=== PATIENT | female | born 1980 | race Caucasian/White ===

== ENCOUNTER 2021-01-27 09:15 | Outpatient (CLI) | payer OTHER, SELFPAY ==
[2021-01-27 09:44] LABS: Basophils Absolute Auto 0.1 K/mm3 (0.0-0.1); Basophils Percent Auto 1.3 % (0.2-1.2); Eosinophils Absolute Auto 0.1 K/mm3 (0-0.3); Eosinophils Percent Auto 1.7 % (0-4.4); Hematocrit 39.2 % (37.0-47.0); Immature Granulocyte Absolute 0.01 K/mm3 (0.00-0.031); Immature Granulocyte Percent A 0.2 % (0-0.5); Lymphocytes Absolute Auto 1.54 K/mm3 (0.9-3.2); Lymphocytes Percent Auto 28.3 % (18.3-44.2); Mean Corpuscular HGB Conc 33.2 g/dl (32-36); Mean Corpuscular Hemoglobin 27.4 pg (26-34); Mean Corpuscular Volume 82.5 fl (80-100); Mean Platelet Volume 10.7 fl (7.4-10.4); Monocytes Absolute Auto 0.4 K/mm3 (0.1-0.6); Monocytes Percent Auto 7.9 % (2.6-8.5); Neutrophils Absolute Auto 3.3 K/mm3 (1.3-6.7); Neutrophils Percent Auto 60.6 % (45.5-73.1); Platelet Count Result 274 k/mm3 (150-375); Red Blood Count 4.75 M/mm3 (4.2-5.4); White Blood Count 5.5 K/mm3 (4.5-10.0)
[2021-01-27 09:58] LABS: Alanine Aminotransferase 26 U/L (4-35); Albumin Level 4.1 g/dL (3.5-5.1); Alkaline Phosphatase 68 U/L (38-126); Amylase 68 U/L (30-110); Anion Gap 6 mmol/L (8-16); Aspartate Amino Transferase 27 U/L (14-36); Bilirubin,Total 0.5 mg/dL (0.2-1.3); Blood Urea Nitrogen 14 mg/dL (7-17); CRP < 0.5 mg/dL (<1.0); Carbon Dioxide 27 mmol/L (22-30); Chloride 103 mmol/L (98-107); Cholesterol 251 mg/dL (0-200); Estimated Glomerular Filt Rate > 60; Glucose 104 mg/dL (65-110); HDL Direct 42 mg/dL; Lipase 34 U/L (23-300); Potassium 4.7 mmol/L (3.4-5.0); Sodium 136 mmol/L (137-145); Triglycerides 149 mg/dL (<150)
[2021-01-27 10:09] LABS: LDL Cholesterol Direct 161 mg/dL
[2021-01-27 12:08] LABS: Erythrocyte Sedimentation Rate 15 mm/hr (0-20)
[2021-01-29 04:02] LABS: Insulin Level Total 7.9 uIU/mL (<=19.6)
[2021-01-29 06:23] LABS: FSH 6.2 mIU/mL (***); LH 5.7 mIU/mL (***); Progesterone <0.2 ng/mL (***)
[2021-02-01 22:47] LABS: Estrogen 327.7 pg/mL
== END 2021-01-27 09:16 | disposition home or self-care (01) ==
PROVIDERS: PCP Family Medicine; Visit Provider Nurse Practitioner Family
DX: R63.5 Abnormal weight gain (principal); R10.12 Left upper quadrant pain; M25.50 Pain in unspecified joint; Z13.220 Encounter for screening for lipoid disorders; F41.8 Other specified anxiety disorders
CPT/HCPCS: 36415; 80053; 80061; 82150; 82672; 83001; 83002; 83525; 83690; 84144; 84443; 85025; 85652; 86038; 86039; 86140

== ENCOUNTER 2021-02-12 07:35 | Outpatient (CLI) | payer OTHER, SELFPAY ==
--- NOTE | ~2021-02-12 | XR_ITS ---
XR finger 1st LT min 2V 02/12/2021 08:43 INDICATION: Left first finger pain PROCEDURE: 3 views left first finger COMPARISON: No prior studies for comparison. FINDINGS: Fracture, dislocation or subluxation is not identified. The soft tissues appear within norm al limits. No foreign bodies are identified. IMPRESSION: 1: NO ACUTE BONE OR JOINT ABNORMALITY IDENTIFIED. Reviewed, dictated and finalized at location A. UCT SAFETY ASSOCIATE
--- NOTE | ~2021-02-12 | XR_ITS ---
EXAMINATION: XR hand BI arthritis min 3V EXAM DATE: 02/12/2021 08:44 INDICATION: Bilateral hand pain. Left trigger finger. TECHNIQUE: Right hand frontal, lateral and oblique projections obtained and reviewed. Left hand fron austin, lateral and oblique projections obtained and reviewed. Catchers projection of both hands. Correl ation is made to left 1st finger exam same date. FINDINGS: Right hand: There are no bony erosions identified. The joint spaces are uniform and symmetric to the contralateral side. No radiopaque foreign bodies identified. There are no acute fractures identified . Left hand: There are no bony erosions identified. The joint spaces are uniform. No radiopaque forei gn bodies identified. There are no acute fractures identified. Normal scapholunate joint space. IMPRESSION: Unremarkable and x-ray exam. Reviewed, dictated and finalized at location A. ENT MONITOR
--- NOTE | ~2021-02-12 | XR_ITS ---
EXAMINATION: XR foot RT min 3V EXAM DATE: 02/12/2021 08:44 INDICATION: M79.671 - Pain in right foot. TECHNIQUE: Right foot dorsoplantar, lateral and oblique projections obtained and reviewed. There is no prior study for comparison. FINDINGS: Right metatarsal bones unremarkable. There is mild right 1st metatarsophalangeal joint preston jihan osteoarthritis. Mild hallux valgus. There are no bony erosions identified. There are no acute f ractures or dislocations identified. There is no subcutaneous gas. The soft tissue is unremarkable. There are no radiopaque foreign bodies. IMPRESSION: Mild hallux valgus and right 1st MTP osteoarthritis. Reviewed, dictated and finalized at location A. TACKER
--- NOTE | ~2021-02-12 | US_ITS ---
US abdomen complete EXAMINATION: US Abdomen Complete INDICATION: Left upper quadrant pain PROCEDURE: Realtime High Resolution abdomen ultrasound. COMPARISON: No prior studies for comparison FINDINGS: Gallbladder within normal limits. No gallstones, pericholecystic fluid, gallbladder wall t hickening or biliary dilatation. Common bile duct measures 5 mm. Liver echotexture is increased, consistent with fatty infiltration.. Pancreas within normal limits. Pancreatic tail is obscured by bowel gas. Spleen is unremarkeable. Renal echotexture is within norm al limits bilaterally without hydronephrosis, contour deforming mass or renal stone. Right kidney kaye sures 9.8 cm. Left kidney measures 11.1 cm. Visualized aspects of the aorta and IVC are within normal limits. Portal vein is patent. No sonograph ic Ghosh's sign indicated by the technologist. IMPRESSION: 1: Fatty infiltration of the liver. Reviewed, dictated and finalized at location A. DING SERVICES TECHNICIAN
== END 2021-02-12 07:36 | disposition home or self-care (01) ==
PROVIDERS: PCP Family Medicine; Visit Provider Nurse Practitioner Family
DX: R10.12 Left upper quadrant pain (principal); M79.671 Pain in right foot; M79.643 Pain in unspecified hand; M20.11 Hallux valgus (acquired), right foot; M19.071 Primary osteoarthritis, right ankle and foot; K76.0 Fatty (change of) liver, not elsewhere classified
CPT/HCPCS: 73130; 73140; 73630; 76700

== ENCOUNTER → 2021-03-07 02:00 | Outpatient (CLI) | payer OTHER, SELFPAY ==
[2021-03-07 17:54] LABS: SARS-CoV-2 RNA PCR Negative
== END ==
PROVIDERS: PCP Family Medicine; Visit Provider Orthopaedic Surgery
DX: Z01.812 Encounter for preprocedural laboratory examination (principal); Z20.822 Contact with and (suspected) exposure to COVID-19
CPT/HCPCS: C9803; U0003; U0005

== ENCOUNTER 2021-03-10 01:52 | Day surgery (SDC) | payer OTHER, SELFPAY ==
[2021-03-04 13:02] VITALS: BMI 37.5
--- NOTE | 2021-03-04 13:18 | PC.NURSE ---
Report to the Outpatient Waiting Room, entrance under the green pavilion located off [facility], at time 1000 on date 03/10/21. OR Time: 1200. - You and your visitor will be asked a series of questions to screen for COVID 19 for your protection. - A mask is required within the hospital. - Only one visitor is allowed at this time. Patient visitors will be guided where to wait when not with patient. Preoperative COVID Testing Requirements: No COVID Test needed if: (proof is required; if not received patient will have Rapid Test prior to entry) - Patient has received COVID Vaccine at least 14 days prior to procedure date or - Patient has positive COVID test result within last 90 days of surgery date. COVID Test needed if above criteria is not met If not COVID vaccinated a COVID test must be conducted within 72 hours of surgery and patient is asked to isolate self from time of testing until procedure. You will go to the [facility] for your COVID testing. The [facility] is located at the corner of [address] [facility]. COVID TEST 03/07 AT 0900 You will only be called if COVID results are positive and your surgeon may reschedule your elective surgery date. Patients may have clear liquids (water, carbonated beverages, clear teas, apple juice) until 3 hours prior to surgery with a maximum of 20 ounces. - No food from midnight until time of surgery - Infants may have breast milk until 4 hours before surgery, infant formula 6 hours prior to surgery. - Children will be allowed to drink immediately following surgery. If applicable, please bring a bottle or sippy cup to assist with drinking. Juice, water, soda, and popsicles are readily available. For infants on formula, please bring formula the day of surgery. Pacifiers are allowed. Take the following medications with a SIP of water the morning of surgery: CYMBALTA Medications to discontinue per physician: DICLOFENAC Date to take last dose: PER DR. ALVARADO Please no make-up, nail dominican, hairspray, perfume, deodorant, or body powder the day of surgery. No jewelry (including any body piercings) or valuables the day of surgery, leave them at home. Please take a shower or bath the night before, or the morning of, surgery with an antibacterial soap. Wear comfortable, loose fitting clothing. Children are encouraged to wear pajamas. - Jewelry must be removed prior to entering the operating room. Rings and piercings that are not removed may be cut off. - The hospital will not accept responsibility for valuables. - Please leave all valuables, including medications, at home the day of surgery. If you are going home after surgery, a licensed helper/driver must drive you home. - NO public transportation without another adult. - We recommend that an adult stay with you for 24 hours following discharge. - We also recommend that you do not drive, make important decision, drink alcoholic beverages, or take any drugs that were not prescribed by your health care provider for at least 24 hours after your discharge time. For Pediatric surgeries, we recommend two adults accompany the child home (only one inside the building at this time). Follow any additional instructions given to you from your surgeon. Telephone instructions given to LUIS HART and asked if any additional questions and then verbalized understanding. Patient advised to call surgeon office or pre surgery nurse liaison [phone] if any additional questions.
--- NOTE | 2021-03-09 10:22 | WPDANESEPPF ---
Anes - Initial Pre Proc Eval Procedure: Operation Date: 03/10/21 12:00 Proposed Procedures p Left Trigger Thumb Release - Reed Grande MD Date/Time: 03/09/21 10:22 Surgeon: Reed Grande MD Pre Op Diagnosis: left trigger thumb Patient Data Age: 40 Gender: F Height: 1.7 m Weight: 108.86 kg Allergies Allergy/AdvReac Type Severity Reaction Status Date / Time No Known Allergies Allergy Verified 03/10/21 10:20 Home Medications Medication Instructions Recorded Confirmed Type diclofenac sodium 50 mg 50 mg PO BID #60 tablet 03/06/21 03/10/21 Rx tablet,delayed release duloxetine 60 mg capsule,delayed 60 mg PO DAILY #90 cap 03/06/21 03/10/21 Rx release Patient hx anesthesia problems: none Family hx anesthesia problems: none Results Review: All pre-operative results and documents have been reviewed as part of the pre-operative evaluation. [facility] Past Medical History Medical History (Updated 03/09/21 @ 10:23 by Bj Martin MD) Anxiety Anxiety with depression BMI 38.0-38.9,adult BMI 39.0-39.9,adult Hyperlipidemia Trigger thumb, left thumb Surgical History Surgical History History of tonsillectomy Family History Family History Father No problems noted. 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 Informed Consent: The patient's anesthetic plan and its attendant risks and benefits were discussed with the patient/family/POA. Questions were solicited and answers provided to the satisfaction of the patient/family/POA.
[2021-03-10] MEDS: ACETAMINOPHEN 500 MG TABLET 1000 MG PO (10:36)
[2021-03-10] MEDS: LACTATED RINGERS 1,000 ML 30 ML IV CONT (10:51)
[2021-03-10] MEDS: KETOROLAC 15 MG/ML VIAL (*BKC) IV PUSH (10:53)
[2021-03-10 10:58] VITALS: BP 120/63; PULSE 62; RESP 16; TEMP 36.3; O2SAT 100
--- NOTE | 2021-03-10 11:54 | WPDHPUPDATE1 ---
History and Physical Update Update Date/Time: 03/10/21 11:54 History and Physical has been reviewed, including an updated exam of the patient. There are NO changes in the patient's condition. Risks, benefits, and alternatives have been discussed and questions answered. Patient agrees to proceed with procedure.
[2021-03-10] MEDS: ceFAZolin 2 GM/D5W 50 ML 2 GM/50 ML BAG IVPB (12:02)
[2021-03-10 12:34] VITALS: BP 103/67; PULSE 65; RESP 16; O2SAT 100
--- NOTE | 2021-03-10 12:43 | W.PM.PROC2 ---
Procedure Note - Detailed Date of Procedure 03/10/21 Pre-op Diagnosis left trigger thumb Post-op Diagnosis same Procedure Performed Left trigger thumb release Surgeon Reed Grande MD Ethical Hacker Kaitlin Mueller Anesthesia MAC and local Description of Procedure The patient was identified and proper site identified. She was taken to the operating room and transferred to the OR table placing supine taking care to pad the torso and extremities. Sedation was administered. A nonsterile tourniquet was placed high on the left arm which was prepped and draped in the usual sterile fashion. Several cc of .25 % plain Marcaine was injected into the subcutaneous tissue over the A1 michaelle of the left first digit. The extremity was exsanguinated and the tourniquet was inflated to 250 mmHg remaining up for about seven minutes. A longitudinal incision was made over the A1 michaelle. Subcutaneous tissue was bluntly dissected down to the michaelle while protecting the neurovascular bundles. The A1 michaelle was identified and then transected longitudinally in line with the incision and tendons. The tendons were delivered into the wound verifying the adequacy of the release. Hemostasis was carried out. The wound was irrigated with sterile saline. Skin edges were reapproximated with 4-0 nylon suture. Sterile dressing was applied. Tourniquet was released. She tolerated the procedure well and was transferred back to a cart, then taken to the recovery area in stable condition. There were no known intraoperative complications. Estimated blood loss was negligible. Perioperative antibiotics were administered. Estimated Blood Loss 1 Tourniquet Time 7 Drains No Packing No Pathology none sent Complications No immediate complications Condition stable Disposition PACU
[2021-03-10 13:00] VITALS: BP 110/65; PULSE 64; RESP 16
[2021-03-10 13:40] VITALS: BP 133/68; PULSE 65; RESP 16
== END 2021-03-10 14:00 | disposition home or self-care (01) ==
PROVIDERS: PCP Family Medicine; Visit Provider Orthopaedic Surgery
PROC: (CPT 26055; principal; 2021-03-10 12:00)
DX: M65.312 Trigger thumb, left thumb (principal); E78.5 Hyperlipidemia, unspecified; F41.8 Other specified anxiety disorders; Z87.891 Personal history of nicotine dependence; E66.9 Obesity, unspecified; Z68.38 Body mass index [BMI] 38.0-38.9, adult
CPT/HCPCS: 26055; A9270; C9803; J0690; J1885; J2250; J2704; J3010; J7120; U0003; U0005

== ENCOUNTER 2023-12-09 11:05 | Outpatient (CLI) | payer OTHER, SELFPAY ==
--- NOTE | ~2023-12-09 | XR_ITS ---
XR knee RT 3V 12/09/2023 11:57 Indication: Knee pain Procedure: 3 views right knee Comparison: No prior studies for comparison. Findings: Mild tricompartment osteoarthritis. Small joint effusion. No focal soft tissue abnormality. No foreign bodies. Impression: 1: Mild tricompartment osteoarthritis. Reviewed, dictated and finalized at location B. Impression: 1: Mild tricompartment osteoarthritis.
--- NOTE | ~2023-12-09 | XR_ITS ---
XR knee LT 3V 12/09/2023 11:57 Indication: Left knee pain Procedure: 3 views left knee Comparison: No prior studies for comparison. Findings: Mild tricompartment osteoarthritis. Small joint effusion. No fracture or traumatic malalign ment. No foreign bodies. Impression: 1: Mild tricompartment osteoarthritis of the left knee. Reviewed, dictated and finalized at location B. Impression: 1: Mild tricompartment osteoarthritis of the left knee.
--- NOTE | ~2023-12-09 | MR_ITS ---
MRI of the brain Clinical History: Paresthesia Technique: Axial and sagittal T1-weighted images were acquired. These were followed by axial T2-weigh chelsi, diffusion weighted, gradient, and FLAIR images. Findings: Single focus of FLAIR hyperintense signal noted in the left frontal periventricular white m atter (axial FLAIR image 16). No acute infarct, intracranial hemorrhage, or mass lesion. Ventricles and subarachnoid spaces are unremarkable. Orbits are unremarkable. Paranasal sinuses and m astoid air cells are clear. Major intracranial flow voids are intact. Sagittal midline structures are intact. IMPRESSION: Single focus of FLAIR hyperintense signal in the left frontal periventricular white matter, nonspecif ic. This is most likely early/mild chronic microvascular ischemic change, however focal demyelinating lesion cannot be completely excluded. Correlate clinically. Reviewed, dictated and finalized at [facility]. IMPRESSION: Single focus of FLAIR hyperintense signal in the left frontal periventricular w jose f matter, nonspecific. This is most likely early/mild chronic microvascular ischemic change, however focal demyelinating lesion cannot be completely exclud ed. Correlate clinically.
== END 2023-12-09 11:06 | disposition home or self-care (01) ==
PROVIDERS: PCP Family Medicine; Visit Provider Family Medicine
DX: M17.0 Bilateral primary osteoarthritis of knee (principal); R90.82 White matter disease, unspecified
CPT/HCPCS: 70551; 73562

== ENCOUNTER 2024-02-03 09:00 | Outpatient (CLI) | payer OTHER, SELFPAY ==
--- NOTE | ~2024-02-03 | XR_ITS ---
EXAMINATION: XR_FOOTSTNDR3_CR DATE: 02/03/2024 09:20 INDICATION: Pain in unspecified foot. TECHNIQUE: 4 views of right foot weightbearing were obtained. COMPARISON: None. FINDINGS: Pes planus is noted. There is moderate hallux valgus. No fracture. There is mild osteoarthr itis of first metatarsophalangeal joint. There are enthesophytes at the posterior and plantar aspects of calcaneal tuberosity. IMPRESSION: 1. Pes planus. 2. Moderate hallux valgus. 3. Mild osteoarthritis of first metatarsophalangeal joint. Reviewed, dictated and finalized at location B.
== END 2024-02-03 09:01 | disposition home or self-care (01) ==
PROVIDERS: PCP Family Medicine
DX: M21.41 Flat foot [pes planus] (acquired), right foot (principal); M20.11 Hallux valgus (acquired), right foot; M19.071 Primary osteoarthritis, right ankle and foot
CPT/HCPCS: 73630

== ENCOUNTER → 2024-06-27 11:25 | Outpatient (REF) | payer OTHER, SELFPAY ==
--- OUTSIDE RECORDS SUMMARY | 2024-06-27 13:44 | XMS_ITS | Clinical Summary ---
Author Organization [facility] Address [address] [place] [address] Care Team Providers Care Guidance Counselor Name Role Phone Unavailable Primary Care Provider Unavailabl e Source Comments [facility],non-owned Affiliates and Associated Physician Practices is amultiple site organization consisting of ambulatory clinics and hospital sitesin [place], [place], [place] and [place]. This disclosure is being madepursuant to the Care Everywhere program and may not contain all information available regarding this patient. Last updated 17.[facility] Allergies No known active allergies Medications * Be aware that medications may not be up to date on this document. Alwaysverify current medications with the patient. Medication Sig Dispensed Refills Start Date End Date Status albuterol HFA (PROVENTIL; VENTOLIN; PROAIR) 108 (90 Base) MCG/ACT inhalerIndications:Dys pnea, unspecified type Inhale 2 puffs by mouth every 6 hours as needed 04/18/2021 Active diclofenac sodium EC (VOLTAREN) 50 MG tabletIndications:Poly arthralgia Take 50 mg by mouth 2 times daily 06/06/2021 Active DULoxetine (CYMBALTA) 60 MG capsuleIndications:Karri yarthralgia,Anxiety Take 60 mg by mouth once daily 05/05/2021 Active polyvinyl alcohol-povidone PF (REFRESH) 1.4-0.6 % ophthalmic solutionIndications:Pr imary Sjogren's syndrome (HCC),Sicca syndrome (HCC) Instill 1 (one) drop into both eyes 4 times daily 30 mL 09/11/2021 Active refresh p.m. (REFRESH PM) ophthalmic ointmentIndications:Pr imary Sjogren's syndrome (HCC),Sicca syndrome (HCC) Instill into both eyes at bedtime 7 g 09/11/2021 Active busPIRone (Buspar) 7.5 MG tablet TAKE 1 TABLET BY MOUTH TWICE DAILY , MAY INCREASE TO THREE TIMES DAILY 11/26/2021 Active vitamin D, ergocalciferol, (Drisdol) 1.25 MG (10115 UT) capsule Take 50,000 Units by mouth every 7 days 11/06/2021 Active Active Problems Problem Noted Date Diagnosed Date Primary Sjogren's syndrome 09/11/2021 Sicca syndrome 09/11/2021 Brain fog 09/11/2021 MCKAY positive 06/26/2021 Sicca 06/26/2021 Polyarthralgia 06/26/2021 Anxiety 06/26/2021 Class 3 severe obesity due t o excess calories without serious comorbidity with body mass index (BMI) of 40.0 to 44.9 in adult 06/26/2021 Primary osteoarthritis involving multiple joints 06/26/2021 Family History Medical History Relation Name Comments Asthma Brother Cancer Mother Heart Failure Mother Bipolar Disorder Sister Relation Name Status Comments Brother Mother Sister Social History Tobacco Use Types Packs/Day Years Used Date Smoking Tobacco: Former Smokeless Tobacco: Never Alcohol Use Standard Drinks/Week Comments Never 0 (1 standard drink = 0.6 oz pur e alcohol) maybe once a month PHQ-2 Answer Date Recorded PHQ2 TOTAL SCORE 3 12/04/2021 Sex and Gender Information Value Date Recorded Sex Assigned at Not on file Gender Identity Not on file Sexual Orientation Not on file Last Filed Vital Signs Vital Sign Reading Time Taken Comments Blood Pressure 118/64 12/04/2021 3:35 PM CDT Pulse - - Temperature 37.2 C (98.9 F) 12/04/2021 3:35 PM CDT Respiratory Rate - - Oxygen Saturation - - Inhaled Oxygen Concentration - - Weight 109.5 kg (241 lb 6.4 oz) 12/04/2021 3:35 PM CDT Height 165.1 cm (5' 5 ) 12/04/2021 3:35 PM CDT Body Mass Index 40.17 12/04/2021 3:35 PM CDT Plan of Treatment Health Maintenance Due Date Last Done Comments COLOGUARD (AGES 45-75) - COL ON CA SCREENING 1978 COLON MONITORING 1978 COLONOSCOPY - COLON CA SCREENING 1978 CT COLONOGRAPHY - COLON CA SCREENING 1978 Colorectal Cancer Screening 1978 FIT - COLON CA SCREENING 1978 FLEX SIG - COLON CA SCREENING 1978 MAMMOGRAM 1978 HIV SCREENING 1993 HEPATITIS C SCREENING 06/12/1996 DTAP/TDAP/TD VACCINES (1 - Tdap) 1997 HEPATITIS B VACCINE (1 of 3 - 19+ 3-dose series) 1997 COVID-19 VACCINE (1 - 2023-2 5 season) 2023 INFLUENZA VACCINE (#1) 2023 DEPRESSION SCREENING 04/05/2024 09/11/2021 SCREENING FOR DIABETES 06/26/2024 06/26/2021 PAP SMEAR 09/11/2024 09/11/2021 LIPID TESTING 10/29/2026 10/29/2021, 01/17/2019 ZOSTER VACCINE (1 of 2) 2028 HIB VACCINE Aged Out No longer eligi ble based on patient's age to complete this topic HPV VACCINE Aged Out No longer eligi ble based on patient's age to complete this topic MENINGOCOCCAL (Group B) VACCINE SHARED DECISION-MAKING Aged Out No longer eligible based on patient's age to complete this topic MENINGOCOCCAL GROUPS A/C/Y/W VACCINE Aged Out No longer eligible b ased on patient's age to complete this topic PNEUMOCOCCAL VACCINE Aged Out No long er eligible based on patient's age to complete this topic Procedures Procedure Name Priority Date/Time Associated Diagnosis Comments COMPREHENSIVE METABOLIC PANEL Routine 06/26/2021 3:20 PM CDT MCKAY positive Sicca, unspecified type Polyarthralgia from Last 3 Months or Most Recently Relevant to Health Maintenance Results * COMPREHENSIVE METABOLIC PANEL (06/26/2021 3:20 PM CDT) [facility] Glucose 90 65 - 139 mg/dL [facility] Comment: Non-fasting reference interval BUN 14 7 - 25 mg/dL [facility] Creatinine 0.85 0.50 - 1.10 mg/dL [facility] eGFR by MDRD 84 > OR = 60 mL/min/1. 73m2 [facility] eGFR by MDRD 97 > OR = 60 mL/min/1. 73m2 [facility] BUN/Creatinine Ratio NOT APPLICABLE 6 - 22 (calc) [facility] Sodium 140 135 - 146 mmol/L [facility] Potassium 4.2 3.5 - 5.3 mmol/L [facility] Chloride 103 98 - 110 mmol/L [facility] CO2 30 20 - 32 mmol/L [facility] Calcium 9.1 8.6 - 10.2 mg/dL [facility] Protein Total 6.6 6.1 - 8.1 g/dL [facility] Albumin 4.1 3.6 - 5.1 g/dL [facility] Globulin Total 2.5 1.9 - 3.7 g/dL (calc) [facility] Albumin/Globuli n Ratio 1.6 1.0 - 2.5 (calc) [facility] Bilirubin Total 0.2 0.2 - 1.2 mg/dL [facility] Alkaline Phosphatase 64 31 - 125 U/L [facility] AST 16 10 - 30 U/L [facility] ALT 20 6 - 29 U/L [facility] Comment: Test Performed at: [facility] [address] [place] [address] SILVERIO MERCHANT DO,MPH Blood BLOOD SPECIMEN / Unknown 06/26/2021 3:20 PM CDT 06/26/2021 3:21 PM CDT Audie Gomes MD LAB - CHEMISTRY JAMARI LUC[facility] Organization Address City/State/[facility] Co de Phone Number [facility] [address] [place] [address] from Last 3 Months or Most Recently Relevant to Health Maintenance
== END ==
LOC: ANHLAB 11:25
PROVIDERS: PCP Family Medicine; Visit Provider Physician Assistant Surgical
DX: D22.9 Melanocytic nevi, unspecified (principal)
CPT/HCPCS: 88305